=== PATIENT | male | born 2000 | race African-American/Black ===

== ENCOUNTER 2020-09-24 23:44 | Emergency (ER) | payer BC, SELFPAY ==
[2020-09-24 23:52] VITALS: BP 119/60; PULSE 76; RESP 16; TEMP 36.4; O2SAT 100
--- NOTE | 2020-09-25 00:42 | ED.GENADULT ---
HPI - General Adult General Chief complaint: Wound/Laceration Stated complaint: Finger laceration Time Seen by Provider: 09/25/20 00:07 History of Present Illness HPI narrative: Patient is a 20-year-old gentleman who presents the emergency department with chief complaint of laceration to right fifth finger. Patient states he was popping balloons with a knife and accidentally stabbed his left pinky finger patient states that the area is painful and hurts whenever he moves it but reports he is able to move his hand without deficit. The patient reports he is left-hand dominant. Related Data Allergies Allergy/AdvReac Type Severity Reaction Status Date / Time No Known Allergies Allergy Verified 09/25/20 00:05 Review of Systems Review of Systems: Narrative: A 10 system review of systems was completed on the patient and is negative except for what is stated in the HPI. Nursing and ancillary documentation was reviewed. PMFSH Comments Patient has no significant past medical history Social history the patient reports that he smokes cigarettes Exam Narrative: Exam Narrative: GENERAL: Well-appearing, well-nourished, and in no acute distress. HEAD: Normocephalic, atraumatic. EYES: PERRLA and EOMI. ENT: Nares clear, no rhinorrhea or epistaxis. Mucous membranes moist. NECK: Supple. CHEST: Clear to auscultation. No respiratory distress. HEART: Regular rate and rhythm. No murmur heard. Normal peripheral pulses. ABDOMEN: Soft, nontender, nondistended, normal active bowel sounds. EXTREMITIES: Normal range of motion. No edema. There is a 1-1/2 cm laceration to the right fifth finger on the volar aspect SKIN: Warm, dry, no rash. NEURO: No focal deficits. Alert and oriented x3. PSYCH: Normal mood and affect. Course Vital Signs Vital signs: Vital Signs Temperature 36.4 C L 09/24/20 23:52 Pulse Rate 76 09/24/20 23:52 Respiratory Rate 16 09/24/20 23:52 Blood Pressure 119/60 09/24/20 23:52 Pulse Oximetry 100 09/24/20 23:52 Temperature 36.4 C L 09/24/20 23:52 Pulse Rate 76 09/24/20 23:52 Respiratory Rate 16 09/24/20 23:52 Blood Pressure 119/60 09/24/20 23:52 Pulse Oximetry 100 09/24/20 23:52 Procedures Laceration Laceration 1: Date: 09/25/20 Time: 00:47 Site: hand Side (If applicable): right Size (cm): 1.5 Description: linear Depth: simple, single layer Local Anesthetic: lidocaine 1% Amount of anesthesia used (mL): 2 Pre-repair: wound explored ====== Skin Level ====== Skin layer closed with: nylon Size (cm): 4-0 Number of sutures: 4 Technique: simple, interrupted ====== Subcutaneous Layer ====== ====== Muscle Layer ====== ====== Tendon Layer ====== Medical Decision Making Vital Signs Vital Signs: Vital Signs Temperature 36.4 C L 09/24/20 23:52 Pulse Rate 76 09/24/20 23:52 Respiratory Rate 16 09/24/20 23:52 Blood Pressure 119/60 09/24/20 23:52 Pulse Oximetry 100 09/24/20 23:52 Temperature 36.4 C L 09/24/20 23:52 Pulse Rate 76 09/24/20 23:52 Respiratory Rate 16 09/24/20 23:52 Blood Pressure 119/60 09/24/20 23:52 Pulse Oximetry 100 09/24/20 23:52 Discharge Plan Discharge Clinical Impression: Laceration of hand, right Qualifiers: Encounter type: initial encounter Foreign body presence: without foreign body Qualified Code(s): S61.411A - Laceration without foreign body of right hand, initial encounter Patient Disposition: Home, Self-Care Condition: Stable Instructions: Antibiotic Form, Laceration (ED) Additional Instructions: Please have the sutures removed in 7 to 10 days Follow-up/Referrals: PHYSICIAN,SPECIALTY DEPARTMENT SUPERVISOR [Primary Care Provider] - Donta Dickey MD [Physician] - Stand Alone Forms: Work/School Release IP Time of Disposition: 00:49
[2020-09-25 01:25] VITALS: BP 114/67; PULSE 71; RESP 16; O2SAT 97
--- NOTE | 2020-09-25 01:27 | PC.NURSE ---
Patient states he is unsure of when he got his last tetanus shot. Patient refusing tetanus shot at this time. Patient informed of risks of not getting tetanus shot. LUIS Abrams notified.
== END 2020-09-25 01:29 | disposition home or self-care (01) ==
PROVIDERS: Emergency Provider Emergency Medicine
DX: S61.216A Laceration without foreign body of right little finger without damage to nail, initial encounter (principal); W26.0XXA Contact with knife, initial encounter
CPT/HCPCS: 12001; 99282

== ENCOUNTER 2021-10-29 00:02 | Emergency (ER) | payer MEDICAID, SELFPAY ==
[2021-10-29] VITALS (7 sets, daily range): BP systolic 111–147; BP diastolic 56–95; PULSE 67–93; RESP 14–24; TEMP 36.8; O2SAT 96–100
--- NOTE | ~2021-10-29 | XR_ITS ---
EXAMINATION: XR chest 1V portable DATE: 10/29/2021 00:30 INDICATION: Overdose TECHNIQUE: frontal view of the chest was obtained. COMPARISON: None FINDINGS: The lungs are clear with no focal airspace opacities, pulmonary edema, pleural effusion or pneumothor ax. The cardiomediastinal silhouette is normal. Visualized bones and soft tissues are unremarkable. IMPRESSION: 1. No acute cardiopulmonary disease. Reviewed, dictated and finalized at location A.
--- NOTE | 2021-10-29 00:11 | ECG_ITS ---
Measurements Intervals [place] Rate: 69 P: 68 WY: 168 QRS: 85 QRSD: 93 T: 68 QT: 365 QTc: 394 Interpretive Statements SINUS RHYTHM NORMAL ECG NO PREVIOUS ECG AVAILABLE FOR COMPARISON Electronically Signed On 10-29-2021 8:33:43 CDT by Danny Locke M.D.
--- NOTE | 2021-10-29 00:30 | ED.OVERDOSE ---
HPI - Overdose General Chief Complaint: Overdose <Dennis Mandujano MD - Last Filed: 10/29/21 07:03> Stated Complaint: tylenol overdose and etoh <Dennis Mandujano MD - Last Filed: 10/29/21 07:03> Time Seen by Provider: 10/29/21 08:22 <Dennis Mandujano MD - Last Filed: 10/29/21 07:03> History of Present Illness HPI Narrative: Patient is a 21-year-old male who presents ER with suicide attempt. Patient has been drinking some alcohol and was starting to feel more depressed. He reports he has been having depression about an aunt who 1 year ago. He has been losing interest in things and not sleeping well. Today he decided he wanted to take his own life and took a handful of extra strength Tylenol. Family witnessed him take these drugs. Unsure on quantity but estimate between 10 and 20 tablets. Patient still endorsing desire to . Denies any other coingestants besides alcohol. Has not attempted suicide previously. Has never had mental health hospitalization. <Dennis Mandujano MD - Last Filed: 10/29/21 07:03> Related Data Home Medications: Home Medications Medication Instructions Recorded Confirmed No Home Medications 10/29/21 10/29/21 <Dennis Mandujano MD - Last Filed: 10/29/21 07:03> Allergies/Adverse Reactions: Allergies Allergy/AdvReac Type Severity Reaction Status Date / Time No Known Allergies Allergy Verified 10/29/21 00:04 <Dennis Mandujano MD - Last Filed: 10/29/21 07:03> Review of Systems Review of Systems: All systems reviewed & are unremarkable except as noted in HPI and below <Dennis Mandujano MD - Last Filed: 10/29/21 07:03> Constitutional: Constitutional: Denies chills, Denies fever(s) and Denies weakness <Dennis Mandujano MD - Last Filed: 10/29/21 07:03> ENT: Denies nasal congestion and Denies sore throat <Dennis Mandujano MD - Last Filed: 10/29/21 07:03> Cardiovascular: Cardiovascular: Denies chest pain, Denies rapid heart rate and Denies radiating jaw, neck or arm pain <Dennis Mandujano MD - Last Filed: 10/29/21 07:03> Respiratory: Respiratory: Denies cough, Denies dyspnea and Denies wheezing <Dennis Mandujano MD - Last Filed: 10/29/21 07:03> Gastrointestinal: Gastrointestinal: Denies abdominal pain, Denies diarrhea, Denies nausea and Denies vomiting <Dennis Mandujano MD - Last Filed: 10/29/21 07:03> Neurologic: Denies headache(s), Denies focal weakness and Denies numbness <Dennis Mandujano MD - Last Filed: 10/29/21 07:03> Psychiatric: Psychiatric: Denies anxiety, Reports depression, Denies homicidal ideation and Reports suicidal ideation <Dennis Mandujano MD - Last Filed: 10/29/21 07:03> PMFSH Past Medical History Medical History: Medical History (Updated 10/29/21 @ 14:57 by Mike Dunn MD) Healthy adult male <Dennis Mandujano MD - Last Filed: 10/29/21 07:03> Surgical History Surgical History: Surgical History (Updated 10/29/21 @ 04:47 by Dennsi Mandujano MD) No history of previous surgery <Dennis Mandujano MD - Last Filed: 10/29/21 07:03> Social History Social History: Social History (Updated 10/29/21 @ 04:47 by Dennis Mandujano MD) Alcohol intake: current Substance use type: marijuana <Dennis Mandujano MD - Last Filed: 10/29/21 07:03> Exam Narrative: GENERAL: Tearful and intoxicated, well-nourished. HEAD: Normocephalic, atraumatic. EYES: PERRL and EOMI. ENT: Mucous membranes moist. CHEST: Clear to auscultation. No respiratory distress. HEART: Regular rate and rhythm. Normal peripheral pulses. ABDOMEN: Soft, nontender, nondistended. EXTREMITIES: Normal range of motion. No edema. SKIN: Warm, dry, no rash. NEURO: Alert and oriented x3. PSYCH: Depressed and tearful, suicidal. No homicidal ideation. Not responding to internal stimuli. <Dennis Mandujano MD - Last Filed: 10/29/21 07:03> Course Reevaluation(s) Reevaluation #1: Patient abdelrahmani
--- NOTE | 2021-10-29 00:45 | PC.NURSE ---
Spoke with Cait from Poison Control. She states will need 4-hour tylenol level at 0230. If 150 or greater at 0230, level is considered toxic so give acetadote. If not, supportive care only. Call Poison control back with labs when available. Case# [id number].
[2021-10-29 00:56] LABS: Alanine Aminotransferase 21 U/L (4-50); Albumin Level 4.6 g/dL (3.5-5.1); Alkaline Phosphatase 97 U/L (38-126); Anion Gap 12 mmol/L (8-16); Aspartate Amino Transferase 36 U/L (17-59); Bilirubin,Total 0.4 mg/dL (0.2-1.3); Blood Urea Nitrogen 17 mg/dL (9-20); Calcium 8.7 mg/dL (8.4-10.2); Carbon Dioxide 24 mmol/L (22-30); Chloride 105 mmol/L (98-107); Estimated CRCL calculation 91 ml/min; Estimated Glomerular Filt Rate > 60; Glucose 87 mg/dL (65-110); Potassium 3.4 mmol/L (3.4-5.0); Sodium 141 mmol/L (137-145)
[2021-10-29 01:00] LABS: Lactic Acid Reflex 1.6 mmol/L (0.7-2.1)
[2021-10-29 01:02] LABS: Acetaminophen 42 ug/mL (10-30); Ethanol 112 mg/dL (<10)
[2021-10-29 01:36] LABS: Acetaminophen 42 ug/mL (10-30)
[2021-10-29 01:42] LABS: Add Urine Microscopic? NO; Appearance Urine Clear (Clear); Bilirubin Urine Negative (Negative); Blood Urine Negative (Negative); Color Urine Yellow (Yellow); Glucose Urine UA Negative (Negative); Ketones Urine Negative (Negative); Leukocyte Esterase Ur Negative LEU/UL (Negative); Nitrate Urine Negative (Negative); Protein Urine Negative (Negative); Specific Grav Ur 1.015 (1.001-1.035); Urobilinogen Urine Negative mg/dL (<2.0)
--- NOTE | 2021-10-29 02:01 | PC.NURSE ---
Pts mother in law called for an update. (Katty) Pt gave permission to release information. .
--- NOTE | 2021-10-29 02:30 | PC.NURSE ---
Per ED , pt's family report that pt took tylenol at approx. 2300, instead of 2230 as previously reported.
--- NOTE | 2021-10-29 02:35 | PC.NURSE ---
Per Mike at Po[facility] Control, need to draw a salicylate level with repeat acetaminophen level at 0300.
[2021-10-29 02:40] LABS: Acetaminophen 64 ug/mL (10-30)
[2021-10-29 02:51] LABS: Amphetamine Screen Urine Negative (Negative); Barbiturate Screen Urine Negative (Negative); Benzodiazepines Screen Urine Negative (Negative); Cannabinoid Screen Urine Positive (Negative); Cocaine Screen Urine Negative (Negative); Methadone Screen Urine Negative (Negative); Opiate Screen Urine Negative (Negative); Phencyclidine Screen Urine Negative (Negative)
[2021-10-29 03:24] LABS: Acetaminophen 67 ug/mL (10-30); Ethanol 70 mg/dL (<10); Salicylate < 1.0 mg/dL (2-20)
--- NOTE | 2021-10-29 03:36 | PC.NURSE ---
[facility] notified, and report that pt is ineligible for services. Will call Crisis.
--- NOTE | 2021-10-29 03:42 | PC.NURSE ---
Poison control notified and they will close case a this time.
[2021-10-29 04:51] LABS: SARS-CoV-2 RNA PCR Negative
--- NOTE | 2021-10-29 05:51 | PC.NURSE ---
Pt medically cleared. RN removed all potential hazards from room. Pt brought in scrubs. Prefering to stay in gown at this time. Pt states he is uncomfortable. RN provided a warm blanket and pillow.
--- NOTE | 2021-10-29 06:44 | PC.NURSE ---
Cheyenne from [facility] states she is currently reviewing the chart and will call back later.
--- NOTE | 2021-10-29 07:20 | PC.NURSE ---
Report given to Barbra chin shift RN, sitter remains at bedside.
--- NOTE | 2021-10-29 07:40 | PC.NURSE ---
rn called to pts bedside. pt stating that he does not want to be placed. states that if he wanted to kill himself that he has that right. states that the bible says he can make his own decisions at age 13. pt states he does want to and we cant stop him. states we arent doing anything for him here and he didnt ask to come here. pt made aware that crisis team suggested placement and pt states he will not go. made aware if he elopes we will contacted pd, pt responds will that ok cause i have a warrant for my arrest anyway.
--- NOTE | 2021-10-29 08:05 | PC.NURSE ---
dr burgess spoke with pt. pt verbally agressive. security called to bedside. pt continues stating that he wants to leave
--- NOTE | 2021-10-29 09:08 | PC.NURSE ---
[facility] given update on pt regarding elopement and pd involvement. request cbc, involuntary certificate and petition when available . told to contact them again when situation calms down.
--- NOTE | 2021-10-29 09:18 | PC.NURSE ---
This RN took over care for this patient. PD was able to walk pt in without incidence. pt is now laying in bed with sitter and security at bedside.
--- NOTE | 2021-10-29 09:31 | PC.NURSE ---
this rn called crisis regarding patient change of status to involuntary to voluntary. carry in worker also notified of pt eloping, PD being called, and behavior since pt made voluntary. this pt and dr. burgess are both requesting crisis come back out to evaluate pt. carry in worker refused to come back out and see pt. carry in worker states we dont' just come back out because a pt wants us to . carry in worker states she would talk to him on phone. carry in worker reminded pt is major elopement risk and it took 5 PD, multiple ED staff, and 2 security guards to get pt into room. carry in worker stating that his status has not in fact changed because he is still suicidal . carry in worker reminded that pt was now involuntary, but carry in worker still stating they would not be out to reevaluate
[2021-10-29 09:48] LABS: Basophils Percent Auto 0.7 % (0.2-1.2); Eosinophils Percent Auto 0.7 % (0-4.4); Hematocrit 46.9 % (42.0-52.0); Hemoglobin 15.1 g/dL (14.0-18.0); Immature Granulocyte Absolute 0.01 K/mm3 (0.00-0.031); Immature Granulocyte Percent A 0.2 % (0-0.5); Lymphocytes Percent Auto 36.8 % (18.3-44.2); Mean Corpuscular HGB Conc 32.2 g/dl (32-36); Mean Corpuscular Hemoglobin 28.3 pg (26-34); Mean Platelet Volume 10.9 fl (7.4-10.4); Monocytes Absolute Auto 0.8 K/mm3 (0.1-0.6); Monocytes Percent Auto 14.4 % (2.6-8.5); Neutrophils Absolute Auto 2.7 K/mm3 (1.3-6.7); Neutrophils Percent Auto 47.2 % (45.5-73.1); Platelet Count Result 226 k/mm3 (150-375); Red Blood Count 5.33 M/mm3 (4.6-6.20); Red Cell Distribution Width 13.3 % (11.5-14.5); White Blood Count 5.7 K/mm3 (4.5-10.0)
--- NOTE | 2021-10-29 09:57 | PC.NURSE ---
spoke with mother, castillo at [phone]. states she would like to come visit pt around 1pm. this rn advised mother to call prior to coming
--- NOTE | 2021-10-29 12:40 | PC.NURSE ---
pt was in the hallway using phone when he hung up and and ran through the ambulance doors. security notified. pt was seen running across the street in neighborhood. police notified
== END 2021-10-29 15:08 | disposition home or self-care (01) ==
PROVIDERS: Emergency Medicine; Emergency Provider Emergency Medicine
DX: T39.1X2A Poisoning by 4-Aminophenol derivatives, intentional self-harm, initial encounter (principal); T51.92XA Toxic effect of unspecified alcohol, intentional self-harm, initial encounter; F32.A Depression, unspecified; Z20.822 Contact with and (suspected) exposure to COVID-19
CPT/HCPCS: 36415; 71045; 80048; 80076; 80307; 81003; 83605; 84443; 85025; 93005; 99284; C9803; U0003; U0005